=== PATIENT | male | born 1945 | race Caucasian/White ===

== ENCOUNTER 2021-07-12 10:23 | Outpatient (CLI) | payer MEDICARE, OTHER ==
[2021-07-13 00:32] LABS: SARS-CoV-2 PCR by NAA Not Detected (NotDetected)
== END 2021-07-12 10:24 | disposition home or self-care (01) ==
LOC: LABBT 10:23
PROVIDERS: ATTEND Nurse Practitioner Adult Health
DX: Z01.812 Encounter for preprocedural laboratory examination (principal); Z20.822 Contact with and (suspected) exposure to COVID-19
CPT/HCPCS: U0003; U0005

== ENCOUNTER 2021-07-15 07:40 | Day surgery (SDC) | payer MEDICARE, OTHER ==
[2021-07-14 15:08] VITALS: BMI 21.9
[2021-07-15 09:23] VITALS: BP 143/53
== END 2021-07-15 09:00 | disposition home or self-care (01) ==
LOC: ULT 07:40
PROVIDERS: ATTEND Nurse Practitioner Adult Health
PROC: 07BH3ZX Excision of Right Inguinal Lymphatic, Percutaneous Approach, Diagnostic (ICD-10-PCS; principal; 2021-07-15)
DX: C82.95 Follicular lymphoma, unspecified, lymph nodes of inguinal region and lower limb (principal); Z88.8 Allergy status to other drugs, medicaments and biological substances; Z79.899 Other long term (current) drug therapy
CPT/HCPCS: 38505; 88184; 88307; 88341; 88342; 88360; 88365

== ENCOUNTER 2021-07-23 07:34 | Outpatient (CLI) | payer MEDICARE, OTHER | END 2021-07-23 07:35 | disposition home or self-care (01) | LOC: PET 07:34 | PROVIDERS: ATTEND Internal Medicine Hematology & Oncology | DX: C82.05 Follicular lymphoma grade I, lymph nodes of inguinal region and lower limb (principal); N20.0 Calculus of kidney; I70.90 Unspecified atherosclerosis | CPT/HCPCS: 78815; A9552 ==

== ENCOUNTER 2023-09-05 08:00 | Outpatient (CLI) | payer MEDICARE | END 2023-09-05 08:01 | disposition home or self-care (01) | LOC: PET 08:00 | PROVIDERS: ATTEND Internal Medicine Hematology & Oncology | DX: C82.05 Follicular lymphoma grade I, lymph nodes of inguinal region and lower limb (principal); R59.9 Enlarged lymph nodes, unspecified; R10.30 Lower abdominal pain, unspecified | CPT/HCPCS: 78815; A9552 ==